=== PATIENT | female | born 1990 | race Caucasian/White ===

== ENCOUNTER 2020-05-19 18:43 | Outpatient (REF) | payer SELFPAY ==
[2020-05-21 14:05] LABS: Chlamydia Result Negative (Negative); GC Result Negative (Negative)
== END 2020-05-19 19:03 ==
LOC: NCHCN 18:43
PROVIDERS: PCP Pediatrics; Visit Provider Physician Assistant Medical
DX: N89.8 Other specified noninflammatory disorders of vagina (principal); R30.9 Painful micturition, unspecified; Z11.3 Encounter for screening for infections with a predominantly sexual mode of transmission
CPT/HCPCS: 87491; 87591; 87086; 87480; 87510; 87660

== ENCOUNTER 2020-10-07 09:19 | Outpatient (REF) | payer OTHER, SELFPAY ==
--- NOTE | 2020-10-07 08:30 | PAPFT_PTH ---
PATIENT: Pilar Aleman LOC: [facility] U#:[id number] AGE/SX: 30/F ROOM: RE10/07/[address]: Christina Kenyon DO : 1990 BED: DIS: 10/07/2020 SPEC #: [id number] RECD: 10/07/20 12:46 STATUS: RSOALBA REBreanne #: [id number] MADHAV: 10/07/20 08:[address]: Christina Kenyon DEPT: [facility] Cytology RECD BY: Lalita Chavez ENTERED: 10/07/20 12:47 SP TYPE: PAPFT OTHR DR: Brianna Mcduffie APRN Tissues: 1 - CX/ENDOCX FOR PAP SMEARS Procedures: PAP THIN PREP/[facility] Screening Comments: [id number]
[2020-10-13 14:28] LABS: Chlamydia Result Negative (Negative); GC Result Negative (Negative)
== END 2020-10-07 09:20 | disposition home or self-care (01) ==
LOC: LBN 09:19
PROVIDERS: PCP Nurse Practitioner Adult Health; Visit Provider Obstetrics & Gynecology
DX: Z12.4 Encounter for screening for malignant neoplasm of cervix (principal); Z11.3 Encounter for screening for infections with a predominantly sexual mode of transmission
CPT/HCPCS: 87491; 87591; 88142

== ENCOUNTER 2020-10-08 07:20 | Outpatient (CLI) | payer OTHER, SELFPAY ==
[2020-10-08 09:49] LABS: ALT 26 U/L (14-59); AST 18 U/L (15-37); Albumin 3.8 g/dL (3.4-5.0); Alkaline Phosphatase 96 U/L (46-116); BUN 12 mg/dL (7-18); Bilirubin, Total 0.4 mg/dL (0.2-1.0); CREATININE 0.9 mg/dL (0.55-1.02); Calcium 9.2 mg/dL (8.5-10.1); Chloride 104 mmol/L (98-107); Glucose 122 mg/dL (74-106); Potassium 3.7 mmol/L (3.5-5.1); Sodium 140 mmol/L (136-145); TSH (W/Ref FT4) 1.96 uIU/mL (0.36-3.74); Total Protein 7.2 g/dL (6.4-8.2)
[2020-10-08 18:32] LABS: FSH 5.5 mIU/mL (See Note)
[2020-10-08 18:34] LABS: LH 22.5 mIU/mL (See Note); Prolactin 14.2 ng/mL (See Table)
[2020-10-10 16:51] LABS: Testosterone, Free 1.41 ng/dL (0.06-1.06); Testosterone, Total 37 ng/dL (8-60)
[2020-10-12 19:16] LABS: 17-Hydroxyprogesterone 76 ng/dL
== END 2020-10-08 07:21 | disposition home or self-care (01) ==
LOC: LBO 07:24
PROVIDERS: PCP Nurse Practitioner Adult Health; Visit Provider Obstetrics & Gynecology
DX: E28.2 Polycystic ovarian syndrome (principal)
CPT/HCPCS: 36415; 80053; 84402; 84403; 83001; 83002; 83498; 84146; 84443

== ENCOUNTER 2020-10-25 16:05 | Outpatient (REF) | payer OTHER, SELFPAY ==
[2020-10-27 14:20] LABS: Chlamydia Result Negative (Negative); GC Result Negative (Negative)
== END 2020-10-25 16:06 | disposition home or self-care (01) ==
LOC: LBN 16:05
PROVIDERS: PCP Nurse Practitioner Adult Health; Visit Provider Obstetrics & Gynecology
DX: E28.2 Polycystic ovarian syndrome (principal); Z11.3 Encounter for screening for infections with a predominantly sexual mode of transmission
CPT/HCPCS: 87491; 87591